=== PATIENT | male | born 1970 | race African-American/Black ===

== ENCOUNTER 2018-06-09 17:43 | Emergency (ER) | payer SELFPAY ==
[2018-06-09 17:50] VITALS: BP 167/106; PULSE 67; BMI 21.2
[2018-06-09] MEDS ORDERED: DIPHTH,PERTUSS(ACELL),TET 0.5 ML DISP.SYRIN IM ONE ×2 (18:33→18:36)
[2018-06-09] MEDS ORDERED: morphine CARPU-JECT 2 MG/1 ML DISP.SYRIN IM ONE (18:33)
--- NOTE | 2018-06-09 18:40 | PDOC ---
History of Present Illness - General Chief Complaint: Bite Stated Complaint: DOG BITE Time Seen by Provider: 06/09/18 18:00 History Source: Patient Exam Limitations: No Limitations - History of Present Illness Initial Comments: 06/09/18 18:34 HISTORY OF PRESENT ILLNESS: 47-year-old male denies medical history presents emergency department for evaluation of lacerations to his mouth sustained after being bitten the face by a dog. Patient reports who is visiting a friend of his and when he bent down to put a lesion on the dog the dog jumped up and bit him in the mouth. The dog up-to-date with immunizations and can be watched. Patient is unsure of his last tetanus shot. No recent travel or sick contacts. PAST MEDICAL HISTORY: Denies past medical history SURGICAL HISTORY: Denies ALLERGIES: No known drug allergies REVIEW OF SYSTEMS General/Constitutional: Denies fever or chills. Denies weakness, weight change. HEENT: Denies change in vision. Denies ear pain or discharge. Denies sore throat. Cardiovascular: Denies chest pain or shortness of breath. Respiratory: Denies cough, wheezing, or hemoptysis. Gastrointestinal: Denies nausea, vomiting, diarrhea or constipation. Denies rectal bleeding. Genitourinary: Denies dysuria, frequency, or change in urination. Musculoskeletal: Denies joint or muscle swelling or pain. Denies neck or back pain. Skin and breasts: see HPI Neurologic: Denies headache, vertigo, loss of consciousness, or loss of sensation. Psychiatric: Denies depression or anxiety. Endocrine: Denies increased thirst. Denies abnormal weight change. Hematologic/Lymphatic: Denies anemia, easy bleeding, or history of blood clots. Allergic/Immunologic: Denies hives or skin allergy. Denies latex allergy. PHYSICAL EXAM General Appearance: Well-appearing, appropriately dressed. No apparent distress , no intoxication. HEENT: EOMI, PERRLA, normal ENT inspection, normal voice, TMs normal, pharynx normal. No conjunctival pallor. No photophobia, scleral icterus. Neck: Supple. Trachea midline. No tenderness, rigidity, carotid bruit, stridor , lymphadenopathy, or thyromegaly. Respiratory/Chest: Lungs CTAB. No shortness of breath, chest tenderness, respiratory distress, accessory muscle use. No crackles, rales, rhonchi, stridor , wheezing, dullness Cardiovascular: RRR. S1, S2. No JVD, murmur, bradycardia, tachycardia. Vascular Pulses: Dorsalis-Pedis (R): 2+, Dorsalis-Pedis (L): 2+ Gastrointestinal/Abdominal: Normal bowel sounds. Abdomen soft, non-distended. No tenderness or rebound tenderness. No organomegaly, pulsatile mass, guarding, hernia, hepatomegaly, splenomegaly. Lymphatic: No adenopathy, tenderness. Musculoskeletal/Extremities: Normal inspection. FROM of all extremities, normal capillary refill. Pelvis Stable. No CVA tenderness. No tenderness to extremities, pedal edema, swelling, erythema or deformity. Integumentary: 4 facial lacerations present. Laceration #1 2.5cm midline upper lip extending from the nares inferiorly through the vermilion border and into the lip. Laceration is deep and jagged. Laceration #2 2.0cm on the right upper lip extending from just below the nares inferiorly through the vermilion border and extending into the mid lip. This laceration is deep but not through and through. Laceration #3 is to the right lower lip extending from the mid lip through the vermilion border. This laceration is deep and pproximately 1 cm inferiorly and linear in shape. Laceration #4 is to the anterior aspect of the chin on the right side which is approximately 1.5 cm in length, linear and deep. 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 Fully oriented, alert. Appropriate mood/affect. Motor strength 5/5. No appreciable EOM palsy, facial droop or sensory deficit. Past History - Past Medical History Allergies/Adverse Reactions: Allergies Allergy/AdvReac Type Severity Reaction Status Date / Time No Known Allergies Allergy Verified 06/09/18 17:50 Home Medications: Ambulatory Orders NK [No Known Home Medication] 06/09/18 COPD: No - Immunization History Immunization Up to Date: No - Suicide/Smoking/Psychosocial Hx Smoking History: Never smoked *Physical Exam - Vital Signs Last Vital Signs Temp Pulse Resp BP Pulse Ox 67 18 167/106 H 99 06/09/18 17:45 06/09/18 17:45 06/09/18 17:45 06/09/18 17:45 Moderate Sedation - Procedure Monitoring Vital Signs: Procedure Monitoring Vital Signs Temperature Pulse Rate 67 06/09/18 17:45 Respiratory Rate 18 06/09/18 17:45 Blood Pressure 167/106 H 06/09/18 17:45 O2 Sat by Pulse Oximetry (%) 99 06/09/18 17:45 Medical Decision Making - Medical Decision Making 06/09/18 18:39 A/P: 47-year-old male with facial laceration sustained status post dog bite Patient does not meet criteria for rabies prophylaxis Laceration #1 midline 2.5cm upper lip extending from the nares inferiorly through the vermilion border and into the lip. Laceration is deep and jagged. Laceration #2 on the 2.0cm right upper lip extending from just below the nares inferiorly through the vermilion border and extending into the mid lip. This laceration is deep but not through and through. Laceration #3 is to the right lower lip extending from the mid lip through the vermilion border. This laceration is deep and pproximately 1 cm inferiorly and linear in shape. Laceration #4 is to the anterior aspect of the chin on the right side which is approximately 1.5 cm in length, linear and deep. Boostrix Morphine 2 mg IM Spoke with Dr. Willis of plastic surgery reports he did not have the equipment available in the hospital to adequately perform laceration closure. Recommendation is to transfer to tertiary care center for definitive care. 06/09/18 19:20 I will call [facility] for transfer. 06/09/18 19:34 [facility] transfer center contacted. Unable to contacts plastic surgery attending at this time. Transfer center will call back with an update. 06/09/18 19:59 At 1955hrs, I spoke with Dr. Varner of [facility] who accepts patient for ED to ED transfer. Accepting physician requests one dose of Unasyn 3 g to be given prior to transfer. *DC/Admit/Observation/Transfer Diagnosis at time of Disposition: Facial laceration Qualifiers: Encounter type: initial encounter Qualified Code(s): S01.81XA - Laceration without foreign body of other part of head, initial encounter - Discharge Dispostion Disposition: TRANSFER ACUTE CARE/OTHER HOSP Condition at time of disposition: Fair - Referrals - Patient Instructions - Post Discharge Activity - Transfer to Acute Care Facility Receiving Facility: [facility]. Accepting Physician:: [place]
[2018-06-09] MEDS ORDERED: MORPHINE SULFATE 2 MG/ML VIAL ONE (18:45)
[2018-06-09] MEDS ORDERED: AMPICILLIN NA/SULBACTAM NA 3 GM in SODIUM CHLORIDE 100 ML IVPB ONE (19:57)
[2018-06-09] MEDS ORDERED: morphine CARPU-JECT 4 MG/1 ML DISP.SYRIN IVPUSH ONE (21:15)
== END 2018-06-09 21:23 | disposition short-term general hospital (02) ==
LOC: JERFT 17:43 → JER 17:43
PROC: 3E0234Z Introduction of Serum, Toxoid and Vaccine into Muscle, Percutaneous Approach (ICD-10-PCS; principal; 2018-06-09)
PROC: 3E03329 Introduction of Other Anti-infective into Peripheral Vein, Percutaneous Approach (ICD-10-PCS; 2018-06-09)
PROC: 3E033NZ Introduction of Analgesics, Hypnotics, Sedatives into Peripheral Vein, Percutaneous Approach (ICD-10-PCS; 2018-06-09)
PROC: 3E023NZ Introduction of Analgesics, Hypnotics, Sedatives into Muscle, Percutaneous Approach (ICD-10-PCS; 2018-06-09)
DX: S01.551A Open bite of lip, initial encounter (principal); S01.85XA Open bite of other part of head, initial encounter; W54.0XXA Bitten by dog, initial encounter; Y93.K9 Activity, other involving animal care; Y92.098 Other place in other non-institutional residence as the place of occurrence of the external cause
CPT/HCPCS: 90715; 99281-25